=== PATIENT | female | born 1990 | race Two or more races ===

== ENCOUNTER 2020-07-20 14:01 | Outpatient (CLI) | payer OTHER | END 2020-07-20 14:17 | disposition HB | LOC: RAD 14:01 | DX: F33.1 Major depressive disorder, recurrent, moderate (principal); Z13.29 Encounter for screening for other suspected endocrine disorder; L70.8 Other acne; E55.9 Vitamin D deficiency, unspecified; E78.1 Pure hyperglyceridemia; Z22.7 Latent tuberculosis ==

== ENCOUNTER 2020-07-22 10:27 | Outpatient (CLI) | payer OTHER | END 2020-07-22 10:44 | disposition home or self-care (01) | LOC: LAB 10:27 | PROVIDERS: ATTEND Internal Medicine | DX: F33.1 Major depressive disorder, recurrent, moderate (principal); Z22.7 Latent tuberculosis; L70.8 Other acne; E55.9 Vitamin D deficiency, unspecified; E78.1 Pure hyperglyceridemia; Z13.29 Encounter for screening for other suspected endocrine disorder; Z01.84 Encounter for antibody response examination; L02.92 Furuncle, unspecified ==

== ENCOUNTER 2021-03-28 16:16 | Emergency (ER) | payer OTHER ==
[~2021-03-28] VITALS: Ht 167.6 cm; Wt 81.6 kg
[2021-03-28] MEDS ORDERED: ESCITALOPRAM OX10 MG (16:31)
[2021-03-28] MEDS ORDERED: ENDOCET 10-3251 EACH (16:31)
[2021-03-28] MEDS ORDERED: SPIRONOLACTONE25 MG (16:31)
[2021-03-28] MEDS ORDERED: DICLOFENAC SODI75 MG PO (17:30)
== END 2021-03-28 18:52 | disposition home or self-care (01) ==
LOC: ER 16:16
DX: M25.562 Pain in left knee (principal)

== ENCOUNTER 2021-06-30 08:21 | Outpatient (CLI) | payer OTHER ==
[~2021-06-30 08:21] MED LIST: DICLOFENAC SODI75 MG PO; ENDOCET 10-3251 EACH; ESCITALOPRAM OX10 MG; SPIRONOLACTONE25 MG
== END 2021-06-30 08:22 | disposition home or self-care (01) ==
LOC: RAD 08:21
DX: F33.1 Major depressive disorder, recurrent, moderate (principal); L70.8 Other acne; E55.9 Vitamin D deficiency, unspecified; E78.1 Pure hyperglyceridemia; Z13.29 Encounter for screening for other suspected endocrine disorder; Z22.7 Latent tuberculosis